=== PATIENT | female | born 1955 | race Caucasian/White ===

== ENCOUNTER 2016-06-05 16:43 | Emergency (ER) | payer OTHER ==
[~2016-06-05] VITALS: Ht 167.6 cm; Wt 65.8 kg
[~2016-06-05 16:43] MED LIST: ADVAIR 100-501 EACH INH; AMLODIPINE BESY10 M1 PO; BACLOFEN20 M1 PO; CYANOCOBAL1000 MCG/2 IM; CYCLOBENZAPRINE10 M1 PO; FLEXERIL10 MG PO; GABAPENTIN400 MG PO; HYDROCHLOROTHIA25 M1 PO; HYDRODIURIL 112.5 M1 PO; IBUPROFEN800 M1 PO; LIDODERM1 EACH TOP; MEDROL DOSEPAK1 PAC PO; MEDROL PO; MEDROL4 M1 PO; NEXIUM40 M1 PO; NORVASC 5MG TAB5 MG PO; PAROXETINE HCL20 M1 PO; PERCOCET 325 MG1 TA2 PO; PERCOCET 5-3251 EACH PO; PREDNISONE50 MG PO; PROAIR HFA8.5 GM INH; ROBAXIN 500MG500 MG; SERTRALINE HYD100 MG PO; SKELAXIN800 MG PO; TRAZODONE HCL50 M1 PO; VITAMIN D250000 UNIT PO; ZORVOLEX35 MG PO
[2016-06-05] MEDS ORDERED: PERCOCET 5-3251 EACH PO (19:22)
[2016-06-05] MEDS ORDERED: MEDROL4 M2 PO (19:22)
--- NOTE | 2016-06-05 19:22 | ED NECK/BACK PAIN COMPLAINT ---
History of Present Illness General Chief Complaint: Fall Stated Complaint: S/P FALL XS 1 WEEK AGO RTLAEG AND BACK PAIN Source: patient Exam Limitations: no limitations Vital Signs & Intake/Output Vital Signs & Intake/Output Vital Signs Date Time Temp Pulse Resp B/P Pulse O2 O2 Flow FiO2 Ox Delivery Rate 06/05 1945 Room Air Room Air 06/05 1939 98.3 78 20 146/89 95 Room Air 06/05 1646 98.3 91 20 157/90 96 Room Air ED Intake and Output 06/06 0000 06/05 1200 Intake Total 240 Output Total Balance 240 Intake, Oral 240 Patient 145 lb Weight Allergies Coded Allergies: NO KNOWN ALLERGIES (06/05/16) Reconcile Medications Albuterol Sulfate (Proair Hfa) 8.5 GM HFA.AER.AD 2 PUF INH Q4-6 PRN PRN COPD (Reported) Amlodipine Besylate 10 MG TABLET 1 TAB PO DAILY BP (Reported) Baclofen 20 MG TAB 1 TAB PO 4 TIMES/DAY MUSCLE SPASMS (Reported) Cyanocobalamin (Vitamin B-12) (Cyanocobalamin Injection) 1,000 MCG/1 ML VIAL 1 ML IM Q30D SUPPLEMENT (Reported) Cyclobenzaprine HCl 10 MG TABLET 1 TAB PO Q8P SPASMS Ergocalciferol (Vitamin D2) (Vitamin D2) 50,000 UNIT CAPSULE 1 CAP PO QMON SUPPLEMENT (Reported) Esomeprazole (Nexium) 40 MG CAP 1 CAP PO DAILY GI (Reported) Fluticasone-Salmeterol (Advair 100-50 Diskus) 1 EACH BLST.W.DEV 1 PUF INH BID COPD (Reported) Gabapentin 400 MG CAP 1 CAP PO TID NERVE PAIN (Reported) Hydrochlorothiazide 25 MG TABLET 1 TAB PO DAILY BP (Reported) Ibuprofen (Ibu) 800 MG TAB 1 TAB PO TID PAIN (Reported) Lidocaine (Lidoderm) 1 EACH ADH..PATCH 1 PAT TOP PRN PAIN (Reported) may wear up to 12 hours Methylprednisolone (Medrol) 4 MG TABLET 1 TAB PO AD BACK PAIN PACK Oxycodone HCl/Acetaminophen (Percocet 5-325 MG Tablet) 5 MG-325 MG TABLET 1-2 TAB PO Q6P PRN PAIN Paroxetine HCl 20 MG TABLET 1 TAB PO DAILY MENTAL HEALTH (Reported) TRAZODONE HCL (Trazodone HCl) 50 MG TAB 1 TAB PO QPM SLEEP (Reported) Triage Note: PT BIBA C/O RIGHT LEG AND BACK PAIN X 1.5 WEEKS. PT TAKES MOTRIN, BACLOFEN AND NEURONTIN DAILY, HAS BEEN TAKING WITH NO RELIEF. H/O SCIATICA. PT STATES PAIN IN IS COCCYX AND RADIATES DOWN BOTH LEGS, BUT SWITCHES LEGS. Triage Nurses Notes Reviewed? yes Onset: Abrupt Duration: day(s):, constant Timing: recent history Quality/Severity: moderate, severe Method of Injury: fall HPI: 61-year-old female comes into emergency room for further evaluation of coccyx pain and right sided back pain reading down her leg. Patient reports that 2 weeks ago she had fallen on her left side been experiencing pain in her right side since the fall. Denies loss of consciousness. Pain shoots down her right leg. Sharp. Continuous. Denies any numbness or tingling. Denies any other associated symptoms. (DANNI SOLANO) Past History Travel History Traveled to [place] past 21 day No Medical History Any Pertinent Medical History? 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 No (DANNI SOLANO) Review of Systems Review of Systems Constitutional: Reports: no symptoms. Eyes: Reports: no symptoms. Ears, Nose, Throat, Mouth: Reports: no symptoms. Respiratory: Reports: no symptoms. Cardiovascular: Reports: no symptoms. Gastrointestinal/Abdominal: Reports: no symptoms. Musculoskeletal: Reports: see HPI. Skin: Reports: no symptoms. Neurological/Psychological: Reports: see HPI. All Other Systems: Reviewed and Negative (DANNI SOLANO) Physical Exam Physical Exam General Appearance: well developed/nourished, mild distress Head: atraumatic Eyes: Bilateral: normal appearance. Ears, Nose, Throat, Mouth: hearing grossly normal, moist mucous membrane Neck: normal inspection Respiratory: no respiratory distress Cardiovascular: regular rate/rhythm Back: normal inspection Extremities: normal range of motion Motor: Deficit L4 Right: No Deficit L4 Left: No Deficit L5 Right: No Deficit L5 Left: No Deficit S1 Right: No Deficit S1 Right: No Neurologic/Psych: awake, alert, oriented x 3, normal mood/affect Skin: intact, normal color, warm/dry (DANNI SOLANO) Progress Differential Diagnosis: carotid dissection, cauda equina syn, herniated disc, myofascial strain, sciatica, spinal cord inj, thoracic outlet syn, T/L spine injury, ureterolithiasis Plan of Care: 06/05/2016 7:52:55 PM Patient clinically looks well. Nontoxic-appearing. In no apparent distress. Patient was offered x-rays here but she declined. I do not feel the patient has any acute fractures. Patient be treated symptomatically and follow up for outpatient x-rays with her primary care doctor. (DANNI SOLANO) Departure Departure Disposition: HOME OR SELF CARE Condition: Stable Clinical Impression Primary Impression: Injury of coccyx Secondary Impressions: Sciatica Referrals: HYUN MILLS (PCP/Family) Additional Instructions: Take Percocet and Medrol Dosepak as prescribed. Follow-up with your primary care doctor symptoms persist for outpatient x-rays. Return if any concerns worsening symptoms. Please go over all results of today's visit with your primary care doctor. Contact your primary care doctor to let them know you were here in the emergency room. There may be nonspecific findings which may not be related to your visit today here in the emergency room but may require further evaluation and chronic monitoring by your primary care doctor. If you had a laceration today the chance of foreign body always remains. You should follow-up with your primary care doctor for recheck in 3-5 days for a wound check. If you had an x-ray done there is a chance that a fracture could have been missed on initial read and you should follow-up with your primary care doctor for repeat x-rays if symptoms persist. If your blood pressure was elevated here in the emergency room please have rechecked by her primary care doctor within the next 48 hours by your primary care doctor. If you were prescribed a narcotic here in the emergency room or any type of controlled substances you're not allowed to drive while taking this medication or operate any type of heavy machinery. Narcotics can make you feel lightheaded dizziness nausea and can cause constipation. You may need to pickle cutter a stool softener. Thank you for choosing [facility] emergency room. Please return to the emergency room immediately if you have any other concerns worsening of symptoms. Departure Forms: Customer Survey General Discharge Information Prescriptions: Current Visit Scripts Oxycodone HCl/Acetaminophen (Percocet 5-325 MG Tablet) 1-2 TAB PO Q6P PRN PAIN #12 TAB (DANNI SOLANO) PA/MEDICAL CODING INSTRUCTOR Co-Sign Statement Statement: ED Attending supervision documentation- [] I saw and evaluated the patient. I have also reviewed all the pertinent lab results and diagnostic results. I agree with the findings and the plan of care as documented in the PA's/MEDICAL CODING INSTRUCTOR's documentation. [X] I have reviewed the ED Record and agree with the PA's/MEDICAL CODING INSTRUCTOR's documentation. [] Additions or exceptions (if any) to the PAs/MEDICAL CODING INSTRUCTOR's note and plan are summarized below: [] (YANET RUIZ,JONNIE Holt)
[2016-06-05 19:40] VITALS: BP 146/89
== END 2016-06-05 19:53 ==
LOC: ERH 16:43
DX: S39.82XA Other specified injuries of lower back, initial encounter (principal); M54.41 Lumbago with sciatica, right side; X58.XXXA Exposure to other specified factors, initial encounter

== ENCOUNTER 2016-06-12 14:37 | Emergency (ER) | payer OTHER ==
[~2016-06-12] VITALS: Ht 167.6 cm; Wt 65.8 kg
[~2016-06-12 14:37] MED LIST changes: +MEDROL4 M2 PO
--- NOTE | 2016-06-12 15:55 | ED MVC/FALL/TRAUMA COMPLAINT ---
History of Present Illness General Chief Complaint: Fall Stated Complaint: FALL LAST WEEK Source: patient, old records Exam Limitations: no limitations Vital Signs & Intake/Output Vital Signs & Intake/Output Vital Signs Date Time Temp Pulse Resp B/P Pulse O2 O2 Flow FiO2 Ox Delivery Rate 06/12 1717 98.2 90 16 144/80 98 Room Air Room Air 06/12 1621 Room Air 06/12 1440 98.2 103 20 152/93 96 Room Air Allergies Coded Allergies: NO KNOWN ALLERGIES (06/05/16) Reconcile Medications Albuterol Sulfate (Proair Hfa) 8.5 GM HFA.AER.AD 2 PUF INH Q4-6 PRN PRN COPD (Reported) Amlodipine Besylate 10 MG TABLET 1 TAB PO DAILY BP (Reported) Baclofen 20 MG TABLET 1 TAB PO 4 TIMES/DAY MUSCLE SPASMS (Reported) Cyanocobalamin (Vitamin B-12) (Cyanocobalamin Injection) 1,000 MCG/1 ML VIAL 1 ML IM Q30D SUPPLEMENT (Reported) Esomeprazole (Nexium) 40 MG CAPSULE.DR 1 CAP PO DAILY GI (Reported) Fluticasone/Salmeterol (Advair 250-50 Diskus) 250 MCG-50 MCG/DOSE BLST.W.DEV 1 PUF INH BID COPD (Reported) Gabapentin (Unknown Strength) CAPSULE (Unknown Dose) PO TID NERVE PAIN ( Reported) Hydrochlorothiazide 25 MG TABLET 1 TAB PO DAILY BP (Reported) Hydroxyzine HCl 25 MG TABLET 1 TAB PO BID ANXIETY (Reported) Ibuprofen 800 MG TABLET 1 TAB PO TID PAIN (Reported) Lidocaine (Lidoderm) 1 EACH ADH..PATCH 1 PAT TOP PRN PAIN (Reported) may wear up to 12 hours Oxycodone HCl/Acetaminophen (Percocet 5-325 MG Tablet) 5 MG-325 MG TABLET 1 TAB PO Q6H PRN PAIN Paroxetine HCl 30 MG TABLET 1 TAB PO DAILY MENTAL HEALTH (Reported) Tramadol HCl 50 MG TABLET 1 TAB PO PRN PAIN (Reported) Trazodone HCl 50 MG TABLET 1 TAB PO QPM SLEEP (Reported) Triage Note: PT TO ED FOR CONTINUED COCCYX PAIN. PT IS S/P FALL ON 06/05. PT WAS SEEN IN ED, SENT HOME WITH PERCOCET AND STEROIDS. PT F/U WITH [facility] ON 06/09 AND WAS ADVISED TO GET SOME X-RAYS. PT ALSO REQUESTING SOMETHING ELSE FOR PAIN. Triage Nurses Notes Reviewed? yes HPI: Patient is a 61 year old female presents complaining of coccyx pain and pain radiating down her right lower extremity. Patient fell approximately 2.5 weeks ago when she slipped and fell. Patient was seen in the emergency department approximately one week ago, placed on Percocet and a Medrol Dosepak with no improvement. Patient followed up with her primary doctor 3 days ago, was placed on tramadol and was given an order for lumbosacral and coccyx x-rays. Patient reports she has been taking the tramadol with no improvement. Pain is severe, sharp in the coccyx area, pain is burning down the right lower extremity. Pain worsens with movement and palpation. Patient denies numbness in her rectum, incontinence, abdominal pain. (HOLLY DALEY) Past History Travel History Traveled to [place] past 21 day No Medical History Any Pertinent Medical History? 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 No (HOLLY DALEY) Review of Systems Review of Systems Constitutional: Reports: no symptoms. Eyes: Reports: no symptoms. Ears, Nose, Throat, Mouth: Reports: no symptoms. Respiratory: Reports: no symptoms. Cardiovascular: Denies: chest pain, syncope. Gastrointestinal/Abdominal: Reports: no symptoms. Denies: abdominal pain. Genitourinary: Reports: no symptoms. Musculoskeletal: Reports: see HPI. Skin: Reports: no symptoms. Neurological/Psychological: Reports: paresthesia (radiating down RLE). (HOLLY DALEY) Physical Exam Physical Exam General Appearance: well developed/nourished, alert, awake Head: atraumatic, normal appearance Eyes: Bilateral: normal appearance. Ears, Nose, Throat, Mouth: hearing grossly normal, moist mucous membrane Neck: normal inspection, supple, full range of motion, no midline tenderness Respiratory: no respiratory distress Peripheral Pulses: 2+ tibialis posterior (R), 2+ tibialis posterior (L), 2+ dorsalis pedis (R), 2+ dorsalis pedis (L) Gastrointestinal: soft, non-tender Back: sacral coccyx tenderness midline. No lumbar midline or paraspinal tenderness. Positive right lower extremity straight leg raise at approximately 30 Extremities: normal range of motion bilateral lower extremities. No tenderness to the lower extremity. Neurologic/Psych: awake, alert, oriented x 3, patellar and Achilles reflexes 2+ to the right lower extremity Skin: normal color, warm/dry Core Measures ACS in differential dx? No Severe Sepsis Present: No Septic Shock Present: No (HOLLY DALEY) Progress Differential Diagnosis: stenosis, herniated disc, fracture, cauda equina. Plan of Care: Orders Procedure Date/time Status XRY-SACRUM AND COCCYX 06/12 1604 Active XRY-LUMBOSACRAL SPINE 4 VIEWS 06/12 1604 Active 06/12/2016 5:04:33 PM: Results of x-rays discussed with patient. No acute red flags on exam, patient appears stable for continued management and outpatient follow-up. (HOLLY DALEY) Diagnostic Imaging: Viewed by Me: Radiology Read. Discussed w/RAD: Radiology Read. Radiology Impression: PATIENT: CHELSEA MANNING PRESENT AGE: 61 PATIENT ACCOUNT NO: [id number] : 56 LOCATION: [facility] ORDERING PHYSICIAN: HOLLY PARKER SERVICE DATE: 06/12/16 EXAM TYPE: RAD - XRY-LUMBOSACRAL SPINE 4 VIEWS EXAMINATION: XR LUMBOSACRAL SPINE CLINICAL INFORMATION: Evaluate for fracture. COMPARISON: X-ray lumbar spine dated 01/21/2008 TECHNIQUE: AP and lateral views of the lumbosacral spine were obtained. FINDINGS: There is mild bony osteopenia Moderate levoscoliosis of the lumbar spine noted again. Interval increase in multilevel degenerative changes with osteophyte formations and decrease intervertebral disc space. Vacuum degeneration noted again at L3-L4 level. No definite evidence of acute fracture or acute subluxation. IMPRESSION: Worsening lumbar spondylosis. No acute osseous abnormality appreciated. 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 <Electronically signed in Other Vendor System> SIGNED BY: YULIYA KENNEDY MD 06/12/161654 (HOLLY DALEY) Departure Departure Time of Disposition: 1704 Disposition: HOME OR SELF CARE Condition: Stable Clinical Impression Primary Impression: Lumbar stenosis Secondary Impressions: Coccyx contusion Qualifiers: Encounter type: initial encounter Qualified Code: S30.0XXA - Contusion of lower back and pelvis, initial encounter Lumbar radiculopathy, acute Referrals: HYUN MILLS (PCP/Family) Additional Instructions: Follow up with her primary doctor this week for further evaluation, call in the morning for appointment. Return to the emergency department visit incontinence, numbness in your rectum, increasing weakness, pain uncontrollable, worsening of symptoms. Departure Forms: Customer Survey General Discharge Information Prescriptions: Current Visit Scripts Oxycodone HCl/Acetaminophen (Percocet 5-325 MG Tablet) 1 TAB PO Q6H PRN PAIN #10 TAB (HOLLY DALEY) PA/SLASHER TENDER HELPER Co-Sign Statement Statement: ED Attending supervision documentation- [] I saw and evaluated the patient. I have also reviewed all the pertinent lab results and diagnostic results. I agree with the findings and the plan of care as documented in the PA's/SLASHER TENDER HELPER's documentation. [x] I have reviewed the ED Record and agree with the PA's/SLASHER TENDER HELPER's documentation. [] Additions or exceptions (if any) to the PAs/SLASHER TENDER HELPER's note and plan are summarized below: [] (JOLIE HENRY DO)
[2016-06-12] MEDS ORDERED: GABAPENTIN400 M2 PO (16:54)
[2016-06-12] MEDS ORDERED: TRAMADOL HCL50 M1 PO (16:55)
--- NOTE | 2016-06-12 16:55 | RADIOLOGY REPORT ---
EXAMINATION: XR LUMBOSACRAL SPINE CLINICAL INFORMATION: Evaluate for fracture. COMPARISON: X-ray lumbar spine dated 01/21/2008 TECHNIQUE: AP and lateral views of the lumbosacral spine were obtained. FINDINGS: There is mild bony osteopenia Moderate levoscoliosis of the lumbar spine noted again. Interval increase in multilevel degenerative changes with osteophyte formations and decrease intervertebral disc space. Vacuum degeneration noted again at L3-L4 level. No definite evidence of acute fracture or acute subluxation. IMPRESSION: Worsening lumbar spondylosis. No acute osseous abnormality appreciated.
[2016-06-12] MEDS ORDERED: PAROXETINE HCL30 M1 PO (16:56)
[2016-06-12] MEDS ORDERED: ADVAIR 250-501 EACH INH (16:57)
[2016-06-12] MEDS ORDERED: HYDROXYZINE HCL25 M2 PO (16:57)
[2016-06-12] MEDS ORDERED: PERCOCET 5-3251 EACH PO (17:08)
[2016-06-12 17:17] VITALS: BP 144/80
== END 2016-06-12 17:17 ==
LOC: ERH 14:37
DX: S30.0XXA Contusion of lower back and pelvis, initial encounter (principal); M48.06 Spinal stenosis, lumbar region; M54.16 Radiculopathy, lumbar region; W01.0XXA Fall on same level from slipping, tripping and stumbling without subsequent striking against object, initial encounter
CPT/HCPCS: 72110; 96372; J1100

== ENCOUNTER 2016-06-18 18:29 | Observation (INO) | payer OTHER ==
[~2016-06-18] VITALS: Ht 167.6 cm; Wt 72.6 kg
[~2016-06-18 18:29] MED LIST changes: +ADVAIR 250-501 EACH INH; +GABAPENTIN400 M2 PO; +HYDROXYZINE HCL25 M2 PO; +PAROXETINE HCL30 M1 PO; +TRAMADOL HCL50 M1 PO
--- NOTE | 2016-06-18 18:34 | NUR ---
BIBA FROM HOME FOR COCCYX PAIN THAT TRAVELS TO RIGHT GLUTEUS AND DOWN RIGHT LEG, STATING ENDPOINT IS MID LATERAL CALF AREA THAT HAS BURNING PAIN. +SENSATION TO EXTREMITY. PT TEARFUL ON ARRIVAL, UNABLE TO AMBULATE AT HOME DUE TO PAIN. TOOK MOTRIN, BACLOFEN AND NEURONTIN WITH NO IMPROVEMENT AT 3PM TODAY. PT REPORTS PAIN IS DUE TO MECHANICAL FALL SUSTAINED 3 WEEKS AGO, IMAGING AND TESTING DONE HERE AT ED AT THAT TIME.
--- NOTE | 2016-06-18 19:21 | NUR ---
ELENA PRETTY IN ROOM FOR EVAL
--- NOTE | 2016-06-18 19:34 | ED NECK/BACK PAIN COMPLAINT ---
See Addendum History of Present Illness General Chief Complaint: Low Back Pain/Injury Stated Complaint: BIBA LOW BACK AND RIGHT LEG PAIN S/P FALL 3W AGO Source: patient, old records Exam Limitations: no limitations Allergies Coded Allergies: NO KNOWN ALLERGIES (06/05/16) Reconcile Medications Albuterol Sulfate (Proair Hfa) 8.5 GM HFA.AER.AD 2 PUF INH Q4-6 PRN PRN COPD (Reported) Amlodipine Besylate 10 MG TABLET 1 TAB PO DAILY BP (Reported) Baclofen 20 MG TABLET 1 TAB PO 4 TIMES/DAY MUSCLE SPASMS (Reported) Cyanocobalamin (Vitamin B-12) (Cyanocobalamin Injection) 1,000 MCG/1 ML VIAL 1 ML IM Q30D SUPPLEMENT (Reported) Esomeprazole (Nexium) 40 MG CAPSULE.DR 1 CAP PO DAILY GI (Reported) Fluticasone/Salmeterol (Advair 250-50 Diskus) 250 MCG-50 MCG/DOSE BLST.W.DEV 1 PUF INH BID COPD (Reported) Gabapentin (Unknown Strength) CAPSULE (Unknown Dose) PO TID NERVE PAIN ( Reported) Hydrochlorothiazide 25 MG TABLET 1 TAB PO DAILY BP (Reported) Hydroxyzine HCl 25 MG TABLET 1 TAB PO BID ANXIETY (Reported) Ibuprofen 800 MG TABLET 1 TAB PO TID PAIN (Reported) Oxycodone HCl/Acetaminophen (Percocet 5-325 MG Tablet) 5 MG-325 MG TABLET 1 TAB PO Q6H PRN PAIN Oxycodone HCl/Acetaminophen (Percocet 5-325 MG Tablet) 5 MG-325 MG TABLET 1 TAB PO 4 TIMES/DAY PRN pain Paroxetine HCl 30 MG TABLET 1 TAB PO DAILY MENTAL HEALTH (Reported) Tramadol HCl 50 MG TABLET 1 TAB PO PRN PAIN (Reported) Trazodone HCl 50 MG TABLET 1 TAB PO QPM SLEEP (Reported) Triage Note: BIBA FROM HOME FOR COCCYX PAIN THAT TRAVELS TO RIGHT GLUTEUS AND DOWN RIGHT LEG, STATING ENDPOINT IS MID LATERAL CALF AREA THAT HAS BURNING PAIN. +SENSATION TO EXTREMITY. PT TEARFUL ON ARRIVAL, UNABLE TO AMBULATE AT HOME DUE TO PAIN. TOOK MOTRIN, BACLOFEN AND NEURONTIN WITH NO IMPROVEMENT AT 3PM TODAY. PT REPORTS PAIN IS DUE TO MECHANICAL FALL SUSTAINED 3 WEEKS AGO, IMAGING AND TESTING DONE HERE AT ED AT THAT TIME. Triage Nurses Notes Reviewed? yes HPI: Patient is a 61 year old female presents complaining of coccyx pain and pain radiating down her right lower extremity. Patient fell approximately 3 weeks ago when she slipped and fell. Patient was seen in the emergency department approximately 2 w ago and again one week ago, placed on Percocet and a Medrol Dosepak with no improvement. Patient has followed up with her primary doctor this week after being seen here and was recommended to go to PT. Patient reports she has been taking the tramadol with no improvement. Pain is severe, sharp in the coccyx area, pain is burning down the right lower extremity. Pain worsens with movement and palpation. Patient denies numbness in her rectum, incontinence, abdominal pain. she is in too much pain to go to PT. she is having difficulty moving and getting round the house. i reviewed her xrays, she has significant arthritis and scoliosis of the spine, there is no new injury. (MARIA DE JESUS PARKER,HOLLY) Vital Signs & Intake/Output Vital Signs & Intake/Output Vital Signs Date Time Temp Pulse Resp B/P Pulse O2 O2 Flow FiO2 Ox Delivery Rate 06/19 1742 97.9 78 18 107/7 91 Room Air 06/19 1358 97.5 82 18 132/77 95 Room Air 06/19 1342 Room Air Room Air ED Intake and Output 06/20 0000 06/19 1200 Intake Total Output Total Balance Patient 160 lb Weight Onset: Abrupt Duration: week(s):, continues in ED, getting worse Timing: remote history Location: lumbar spine Radiation: none Context: trauma Method of Injury: fall Loss of Consciousness: no loss of consciousness Modifying Factors: movement Associated Symptoms: lower back pain (BONNIE RUIZ,ISI Joyce) Past History Travel History Traveled to [place] past 21 day No Medical History Any Pertinent Medical History? 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 No (HOLLY SPRING) Review of Systems Review of Systems Constitutional: Reports: see HPI. Eyes: Reports: no symptoms. Ears, Nose, Throat, Mouth: Reports: no symptoms. Respiratory: Reports: no symptoms. Cardiovascular: Reports: no symptoms. Gastrointestinal/Abdominal: Reports: no symptoms. Musculoskeletal: Reports: see HPI. Skin: Reports: no symptoms. Neurological/Psychological: Reports: no symptoms. All Other Systems: Reviewed and Negative (HOLLY SPRING) Physical Exam Physical Exam Neck: normal inspection, supple, full range of motion, normal alignment Comments: Well-developed well-nourished no apparent distress. HEENT: Atraumatic, extraocular motion intact Neck: Supple, no lymphadenopathy Back: Tenderness to the paravertebral musculature on the R side lower lumbar and coccyx region with mild spasming noted. No midline tenderness. No deformity or signs of trauma. There is no rashes present. Range of motion is limited secondary to pain Straight leg raise is positive on the right Bilateral lower extremities are neurovascularly intact with sensation and motor grossly intact. Gait cannot be tested Respiratory: No respiratory distress Abdomen: Soft nontender nondistended Extremities: No edema, full range of motion Neuro: Alert and oriented x3 Psych: Mood affect normal, normal memory normal judgment. Skin: Warm and dry, no rash on exposed skin (HOLLY SPRING) Progress Differential Diagnosis: AAA, aortic dissection, C spine injury, carotid dissection, cauda equina syn, herniated disc, myofascial strain, pyelo/UTI, sciatica, spinal cord inj, thoracic outlet syn, T/L spine injury, ureterolithiasis Plan of Care: Orders Procedure Date/time Status Regular Diet 06/19 B Active PT Evaluate & Treat 06/19 355 Active CASE MANAGEMENT CONSULT 06/19 355 Active Saline Lock 06/[address] in observation 06/18 2203 Active Misc Message 06/18 2203 Active ED Holding Orders 06/18 2203 Active Patient Data 06/18 2203 Active Vital Signs 06/18 2203 Active Code Status 06/18 2203 Active Intake & Output 06/18 1848 Active Diagnostic Imaging: Viewed by Me: Radiology Read. Discussed w/RAD: Radiology Read. Radiology Impression: PATIENT: CHELSEA MANNING PRESENT AGE: 61 PATIENT ACCOUNT NO: [id number] : 56 LOCATION: [facility] ORDERING PHYSICIAN: HOLLY PARKER SERVICE DATE: 06/18/16 EXAM TYPE : RAD - XRY-HIP 2-3 VIEWS, RIGHT EXAMINATION: XR HIP, RIGHT CLINICAL INFORMATION : Right groin pain. COMPARISON: CT abdomen and pelvis dated 12/27/2007. TECHNIQUE: Frontal and frog lateral of the right hip. FINDINGS: Bony alignment is normal. There is mild generalized bony demineralization. There is mild narrowing of the superior portion of the right acetabular joint space, with mild sclerosis of the right acetabular roof. No acute fracture or dislocation is seen. The right femoral head appears smooth. The soft tissue planes are unremarkable, without foreign body. IMPRESSION: 1. There are mild osteoarthritic changes of the right hip. 2. No acute fracture or dislocation is seen. 3. There is generalized bony demineralization. DICTATED BY: CHUCKY HATCH MD DATE/TIME DICTATED:06/18/162111 Hand-Off Endorsed To: ISI MELCHOR MD Endorsed Time: 0025 Pending: other (RE EVAL IN AM, PAIN CONTROL ) Comments: Patient given 30 mg of Toradol IM and 2 Percocet. She was reevaluated and pain has mildly improved, she attempted to stand and was unable to due to severe pain in her coccyx and low back region and right hip and groin region. We will give her a milligram of Dilaudid and obtain right hip x- ray. Right hip x-ray is unremarkable except for mild arthritis no traumatic injury or fracture noted. Patient was reevaluated, still with severe pain, she cannot stand and walk within a few feet. Due to her symptoms, she is unsafe discharge home and will be kept in the emergency department as an ED observation. She will be discharged in the morning, hopefully her pain is better controlled at that time. She will follow up with a paint sprayer sandblaster (MARIA DE JESUS PARKER,HOLLY) Diagnostic Imaging: Viewed by Me: CT Scan. Discussed w/RAD: CT Scan. Radiology Impression: right hip ct scan... pubic rami and ala fx as noted below. , lumbar sacral ct... transverse process L5 fx, right ilium fx as noted below Hand-Off Endorsed To: JOLIE SCHULTZ MD Endorsed Time: 0700 Pending: other Comments: PATIENT: CHELSEA MANNING PRESENT AGE: 61 PATIENT ACCOUNT NO: [id number] : 56 LOCATION: [facility] ORDERING PHYSICIAN: ISI MELCHOR MD SERVICE DATE: 06/19/16 EXAM TYPE: CAT - CT LUMB SPINE WO IV CONTRAST CT LUMBAR SPINE WITHOUT CONTRAST CLINICAL INFORMATION: Pain in the right hip, pelvis and back 3 weeks after fall. COMPARISON: Lumbar spine radiographs from the 2016. Lumbar spine MRI May 27, 2005. TECHNIQUE: Helical non-contrast CT images were obtained through the lumbar spine and 1.25 and 2.5 mm axial reconstructions were reviewed along with sagittal and coronal MPRs. FINDINGS: There is a nondisplaced fracture involving the right L5 transverse process. No additional fractures are identified within the lumbar spine. There are partially imaged fractures involving the right sacral amelia and the left ilium anteriorly. The fracture involving the left ilium anteriorly is felt to be subacute with some bone formation appreciated along the margins of the fracture. There is a severe leftward convex scoliotic curvature of the lumbar spine. Lumbar vertebral body heights are overall maintained. There is severe disc volume loss at all lumbar levels. There is vacuum phenomenon at L1-L2 and L3-L4. Advanced multilevel facet arthropathy. 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 There are laminectomy changes at L4. No high-grade bony foraminal stenosis is appreciated. There are disc bulges at the majority of lumbar levels and at L3-L4 multifactorial degenerative changes are suspected to result in moderate central canal stenosis. IMPRESSION: - There is a nondisplaced fracture involving the right L5 transverse process and there are partially imaged fractures involving the right sacral amelia and the left ilium anteriorly. The fracture involving the left ilium anteriorly is felt to be subacute with some bone formation appreciated along the margins of the fracture. - Severe leftward convex scoliotic curvature of the lumbar spine superimposed on advanced multilevel degenerative disc disease and facet arthropathy. 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 Appearance is similar in comparison to a lumbar spine MRI from May 27, 2005. DICTATED BY: JOLIE BULL MD DATE/TIME DICTATED:06/19/16509 HOME MANAGER:TRICIA DATE/TIME TRANSCRIBED:06/19/16509 CONFIDENTIAL, DO NOT COPY WITHOUT APPROPRIATE AUTHORIZATION. <Electronically signed in Other Vendor System> SIGNED BY: JOLIE BULL MD 06/19/16526 PATIENT: CHELSEA MANNING PRESENT AGE: 61 PATIENT ACCOUNT NO: [id number] : 56 LOCATION: [facility] ORDERING PHYSICIAN: ISI MELCHOR MD SERVICE DATE: 06/19/16 EXAM TYPE: CAT - CT LOWER EXT WO IV CONTRAST EXAMINATION: CT LOWER EXTREMITY WITHOUT CONTRAST, RIGHT CLINICAL INFORMATION: Pain in the right hip and pelvis 3 weeks after fall COMPARISON: Lumbar spine CT performed the same day and right hip radiographs June 18, 2016. TECHNIQUE: Multidetector CT acquisition of the right hip is obtained. Multiplanar reformats were acquired and utilized for image interpretation. FINDINGS: There is a partially imaged fracture likely involving the junction of the right superior pubic ramus and the right pubic symphysis on axial image 46 of series 7. Redemonstration of the right sacral amelia fracture as discussed on the corresponding lumbar spine CT. Transverse fracture involving the right L5 transverse process and a fracture involving the anterior aspect of the left ilium are demonstrated on the corresponding lumbar spine CT and not included on this exam. The right hip is intact. Imaged proximal right femur is normal. The right femoral acetabular joint is normal. The right ilium is intact. No significant soft tissue findings. IMPRESSION: - There is a partially imaged fracture likely involving the junction of the right superior pubic ramus and the right pubic symphysis on axial image 46 of series 7. Redemonstration of the right sacral amelia fracture as discussed on the corresponding lumbar spine CT. Transverse fracture involving the right L5 transverse process and a fracture involving the anterior aspect of the left ilium are demonstrated on the corresponding lumbar spine CT and not included on this exam. - The right hip is intact. DICTATED BY: JOLIE BULL MD DATE/TIME DICTATED:06/19/16535 HOME MANAGER:TRICIA DATE/TIME TRANSCRIBED:06/19/16 36 CONFIDENTIAL, DO NOT COPY WITHOUT APPROPRIATE AUTHORIZATION. <Electronically signed in Other Vendor System> SIGNED BY: JOLIE BULL MD 06/19/16 0552 (BONNIE RUIZ,ISI Joyce) Comments: 06/19/2016 6:49:52 PM patient signed out to me by Dr. Melchor at shift slip box changer. The patient will be transferred to an extended care facility/ rehabilitation program. (MARGO RUIZ,JOLIE Rousseau) Departure Departure Condition: Stable Referrals: HYUN MILLS (PCP/Family) Additional Instructions: Please follow up with primary care doctor or paint sprayer sandblaster for further evaluation and treatment of your low back pain Departure Forms: Customer Survey General Discharge Information Observation Note Spoke With: ISI MELCHOR MD Physician Advisor Notified: YANET RUIZ,JONNIE [facility] Patient In: ED Observation Rationale for Observation: My rational for observation is as follows . Severe intractable low back pain not relieved with IV pain medication. Unable to ambulate, failed outpatient treatment as she has been seen here 3 times in the last 2 weeks and by her primary care doctor twice. (HOLLY SPRING) Departure Prescriptions: Current Visit Scripts Oxycodone HCl/Acetaminophen (Percocet 5-325 MG Tablet) 1 TAB PO Q6H PRN PAIN #10 TAB Oxycodone HCl/Acetaminophen (Percocet 5-325 MG Tablet) 1 TAB PO 4 TIMES/DAY PRN pain #12 TAB Comments 06/19/16, 6:27Am....fractures noted in pelvis, discussed with dr. navarro... non operative management is proper ... PT/case management eval this AM. Pt signed out to Dr. Schultz. (ISI MELCHOR MD) Departure Disposition: ACUTE REHAB FACILITY Clinical Impression Primary Impression: Intractable low back pain Secondary Impressions: Pelvic fracture Qualifiers: Encounter type: initial encounter Pelvic bone location: ischium Fracture type: closed Fracture morphology: unspecified fracture morphology Fracture alignment: nondisplaced Laterality: unspecified laterality Qualified Code: S32.609A - Unspecified fracture of unspecified ischium, initial encounter for closed fracture Pubic ramus fracture Qualifiers: Encounter type: initial encounter Fracture type: closed Laterality: unspecified laterality Qualified Code: S32.599A - Other specified fracture of unspecified pubis, initial encounter for closed fracture (MARGO RUIZ,JOLIE Rousseau) ED Attending Observation Initial Observation Note: I have seen and personally examined CHELSEA MANNING on 06/19/16 at 0630. I agree with the current emergency department documentation. The disposition (admission or discharge) is uncertain at this time, she needs a period of observation for the following reason(s): pelvic fractures as noted... pt sleeping comfortably after oral pain medications. The ED Nurse caring for this patient has been personally informed as to what the patient is being observed for. Observation Re-Evaluation: I have reevaluated CHELSEA MANNING on 06/19/16 at 0357. The physical findings that support the continued need to observe this patient include .PT WITH PERSISTENT PAIN.... PT ASKING FOR PERCOCET AND STATES SHE CAN'T CARE FOR HERSELF.... WILL ORDER CT SCAN TO FURTHER EVALUATE GIVEN THE PAIN AND PERSISTENT DIFFICULTY WITH AMBULATING... PT AND CASE MANAGEMENT TO EVALUATE FOR POTENTIAL IN PATIENT REHAB. (BONNIE RUIZ,ISI Joyce) The ED Nurse caring for this patient has been personally informed as to what the patient is being observed for. Observation Re-Evaluation: I have reevaluated CHELSEA MANNING on 06/19/16 at 0357. The physical findings that support the continued need to observe this patient include .PT WITH PERSISTENT PAIN.... PT ASKING FOR PERCOCET AND STATES SHE CAN'T CARE FOR HERSELF.... WILL ORDER CT SCAN TO FURTHER EVALUATE GIVEN THE PAIN AND PERSISTENT DIFFICULTY WITH AMBULATING... PT AND CASE MANAGEMENT TO EVALUATE FOR POTENTIAL IN PATIENT REHAB. (BONNIE RUIZ,ISI Joyce)
--- NOTE | 2016-06-18 19:47 | NUR ---
MEDICATED WITH TORADOL AND PERCOCET PER eMAR. LIGHTS DIMMED AND WATER PROVIDED PER REQUEST. TV ON PER REQUEST
--- NOTE | 2016-06-18 20:50 | NUR ---
IV ESTABLISHED AND MEDICATED PER eMAR. TO XRAY VIA STRETCHER. SLIGHT IMPROVEMENT IN MOBILITY OBSERVED
--- NOTE | 2016-06-18 21:17 | RADIOLOGY REPORT ---
EXAMINATION: XR HIP, RIGHT CLINICAL INFORMATION: Right groin pain. COMPARISON: CT abdomen and pelvis dated 12/27/2007. TECHNIQUE: Frontal and frog lateral of the right hip. FINDINGS: Bony alignment is normal. There is mild generalized bony demineralization. There is mild narrowing of the superior portion of the right acetabular joint space, with mild sclerosis of the right acetabular roof. No acute fracture or dislocation is seen. The right femoral head appears smooth. The soft tissue planes are unremarkable, without foreign body. IMPRESSION: 1. There are mild osteoarthritic changes of the right hip. 2. No acute fracture or dislocation is seen. 3. There is generalized bony demineralization.
--- NOTE | 2016-06-18 21:27 | NUR ---
PT GOT UP AN DOWN OFF OF BEDSIDE COMMODE TO VOID. PT DID THIS INDEPENDENTLY. VITALS TAKEN, HOLLY Dumont PA IN TO SEE PT AND DISCUSS PAIN CONTROL. PT STATES PAIN IS A 6 OUT OF 10 AT REST
--- NOTE | 2016-06-18 21:45 | NUR ---
PT TO BE ADMITTED FOR OBSERVATION. PT GIVEN BOX DINNER.
[2016-06-18] MEDS ORDERED: PERCOCET 5-3251 EACH PO (22:24)
--- NOTE | 2016-06-18 22:43 | NUR ---
REPORT RECIEVED FROM GAYLA TRAN, PT CARE ASSUMED AT THIS TIME. LIGHTS DIMMED, PT PROVIDED PILLOW FOR COMFORT, WILL CONTINUE TO MONITOR.
--- NOTE | 2016-06-19 00:47 | NUR ---
PT SLEEPING IN HOSPITAL BED AT THIS TIME, LIGHTS REMAINED OFF, REGULAR RESPIRATIONS NOTED, NO ACUTE DISTRESS, WILL CONTINUE TO MONITOR.
--- NOTE | 2016-06-19 02:16 | NUR ---
PT SLEEPING AT THIS TIME, REMAINS IN HOSPITAL BED, PT OFFERING NO COMPLAINTS AT THIS TIME, REGULAR RESPIRATIONS NOTED. NAD. WILL CONTINUE TO MONITOR.
[2016-06-19] MEDS ORDERED: PERCOCET 5-3251 EACH PO (02:49)
--- NOTE | 2016-06-19 03:47 | NUR ---
CARLENE FROM CAT SCAN ATTEMPTED TO PLACE PT IN WHEELCHAIR FOR SCAN. PT STATED SHE WAS IN TOO MUCH PAIN FOR TRANSFER. PT PLACED BACK IN HOSPITAL BED, REPOSITIONED FOR COMFORT. MADE AWARE
--- NOTE | 2016-06-19 03:55 | NUR ---
PT TO CAT SCAN
--- NOTE | 2016-06-19 04:04 | NUR ---
PT MEDICATED PER EMAR WITH 2 TABS PERCOCET.
--- NOTE | 2016-06-19 05:27 | CT SCAN REPORT ---
CT LUMBAR SPINE WITHOUT CONTRAST CLINICAL INFORMATION: Pain in the right hip, pelvis and back 3 weeks after fall. COMPARISON: Lumbar spine radiographs from the 2016. Lumbar spine MRI May 27, 2005. TECHNIQUE: Helical non-contrast CT images were obtained through the lumbar spine and 1.25 and 2.5 mm axial reconstructions were reviewed along with sagittal and coronal MPRs. FINDINGS: There is a nondisplaced fracture involving the right L5 transverse process. No additional fractures are identified within the lumbar spine. There are partially imaged fractures involving the right sacral amelia and the left ilium anteriorly. The fracture involving the left ilium anteriorly is felt to be subacute with some bone formation appreciated along the margins of the fracture. There is a severe leftward convex scoliotic curvature of the lumbar spine. Lumbar vertebral body heights are overall maintained. There is severe disc volume loss at all lumbar levels. There is vacuum phenomenon at L1-L2 and L3-L4. Advanced multilevel facet arthropathy. 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 There are laminectomy changes at L4. No high-grade bony foraminal stenosis is appreciated. There are disc bulges at the majority of lumbar levels and at L3-L4 multifactorial degenerative changes are suspected to result in moderate central canal stenosis. IMPRESSION: - There is a nondisplaced fracture involving the right L5 transverse process and there are partially imaged fractures involving the right sacral amelia and the left ilium anteriorly. The fracture involving the left ilium anteriorly is felt to be subacute with some bone formation appreciated along the margins of the fracture. - Severe leftward convex scoliotic curvature of the lumbar spine superimposed on advanced multilevel degenerative disc disease and facet arthropathy. 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 Appearance is similar in comparison to a lumbar spine MRI from May 27, 2005.
--- NOTE | 2016-06-19 05:35 | NUR ---
PT SLEEPING AT THIS TIME, OFFERING NO COMPLAINTS. BILATERAL CHEST RISE AND FALL NOTED. NAD. WILL CONTINUE TO MONITOR.
--- NOTE | 2016-06-19 05:52 | CT SCAN REPORT ---
EXAMINATION: CT LOWER EXTREMITY WITHOUT CONTRAST, RIGHT CLINICAL INFORMATION: Pain in the right hip and pelvis 3 weeks after fall COMPARISON: Lumbar spine CT performed the same day and right hip radiographs June 18, 2016. TECHNIQUE: Multidetector CT acquisition of the right hip is obtained. Multiplanar reformats were acquired and utilized for image interpretation. FINDINGS: There is a partially imaged fracture likely involving the junction of the right superior pubic ramus and the right pubic symphysis on axial image 46 of series 7. Redemonstration of the right sacral amelia fracture as discussed on the corresponding lumbar spine CT. Transverse fracture involving the right L5 transverse process and a fracture involving the anterior aspect of the left ilium are demonstrated on the corresponding lumbar spine CT and not included on this exam. The right hip is intact. Imaged proximal right femur is normal. The right femoral acetabular joint is normal. The right ilium is intact. No significant soft tissue findings. IMPRESSION: - There is a partially imaged fracture likely involving the junction of the right superior pubic ramus and the right pubic symphysis on axial image 46 of series 7. Redemonstration of the right sacral amelia fracture as discussed on the corresponding lumbar spine CT. Transverse fracture involving the right L5 transverse process and a fracture involving the anterior aspect of the left ilium are demonstrated on the corresponding lumbar spine CT and not included on this exam. - The right hip is intact.
--- NOTE | 2016-06-19 07:30 | NUR ---
ASSUMED CARE OF THIS PATIENT PT ASSISTED OOB TO BSC AT THIS TIME. RATES PAIN 11/30.
--- NOTE | 2016-06-19 07:51 | NUR ---
PT MEDICATED WITH PRN PERCOCET PER [facility]DERS FOR PAIN LEVEL 8/10. GAVE LIST OF AM MEDS TO DR ARAGON FOR ORDERING.
--- NOTE | 2016-06-19 08:55 | NUR ---
PT MEDICATED WITH AM MEDS PER ORDERS DR ARAGON, SEE eMAR FOR DETAILS. WILL CONTINUE TO MONITOR
--- NOTE | 2016-06-19 09:17 | NUR ---
PHYSICAL THERAPY HERE FOR EVAL HERE FOR EVAL
--- NOTE | 2016-06-19 10:29 | NUR ---
DION FROM CASE MANAGEMENT INTO SPEAK WITH PATIENT
--- NOTE | 2016-06-19 10:37 | NUR ---
CASE MANAGEMENT-REFERRAL RECEIVED FROM DR. ARAGON THAT THE PATIENT WILL LIKELY NEED STR PENDING A PT EVALUATION. PT EVALUATED THE PATIENT AND DO RECOMMEND STR. MET WITH THE PATIENT INTRODUCED SELF AND THE ROLE OF THIS DEPARTMENT. PER THE PATIENT SHE LIVES IN HER OWN APARTMENT WITH STEPS TO GET INSIDE. SHE HAS HAD INCREASING DIFFICULTY AMBULATING AND AGRESS TO REHAB. REVIEWED FACILITY RESOURCE LIST. PT HAS NO PREFERENCES AND AGREES WITH REFERRAL TO OUR PREFERRED PARTNERS. ASKED PATIENT IF I COULD CONTACT HER SON AND SHE STATES SHE WILL FILL HIM HIM. WILL PROCEED AND KEEP ALL INFORMED.
--- NOTE | 2016-06-19 11:21 | NUR ---
assumed care of pt, PT RESTING COMFORTABLY AT THIS TIME, CURRENTLY DENIES ANY NEEDS. AWAITING BED ASSIGNMENT FROM CASE MANAGEMENT
--- NOTE | 2016-06-19 11:42 | NUR ---
PT EATING LUNCH WITH NO DIFFICULTY, FRIENDS/FAMILY AT BEDSIDE. MEDICATED WITH PERCOCET PER EMAR.
--- NOTE | 2016-06-19 12:48 | NUR ---
PT STATING PERCOCET HAS IMPROVED PAIN, ASSISTED TO COMMODE WITH MINIMAL ASSISTANCE, NOW RESQUESTING TO REST IN A DARKENED ROOM
--- NOTE | 2016-06-19 13:46 | NUR ---
[facility] CALLED FOR GABAPENTIN 400MG, STATES IT WILL BE READY TO BE PICKED UP IN A FEW MINUTES.
--- NOTE | 2016-06-19 14:33 | NUR ---
PT ASSISTED TO AND FROM THE [facility] COMMODE, MEDICATED PER EMAR, DENIES ANY ADDTL NEEDS AT THIS TIME
--- NOTE | 2016-06-19 16:04 | NUR ---
Case Mgmnt TSF: Attestation has been faxed to [facility]. Fax confirmation received. I will call and make sure that they have received it. CM continuing to follow.
--- NOTE | 2016-06-19 16:15 | NUR ---
PT MEDICATED WITH 1600 10MG BACLOFEN PER EMAR.
--- NOTE | 2016-06-19 16:18 | NUR ---
PT MEDICATED WITH 1 TAB PERCOCET PER EMAR FOR PAIN 11/30.
--- NOTE | 2016-06-19 16:50 | NUR ---
Case Mgmnt TSF: Multiple calls back and forth between Yassine (for [facility]) and myself. She spoke to [facility] and they are offering a bed. I am still pending call back to make sure it is ok to send the patient tonight. [facility] has been approved. Patient has verbally accepted bed to me for [facility]. I will work on getting all paperwork together for envelope and update nursing. CM continuing to follow.
--- NOTE | 2016-06-19 16:56 | NUR ---
Case Mgmnt TSF: I called and spoke with [facility]. They will take patient tonight. She asked that I touch base with Dayanara in admissions at [facility]. I called and spoke with Dayanara at [facility] and they will take the patient. They would like to take her a little later. We will schedule corn picker for 1830pm to give them enough time. I let them know that envelope will have all the clinical that they are looking for. I will update nursing and will continue to monitor.
--- NOTE | 2016-06-19 17:10 | NUR ---
PT AMBULATED TO THE BEDSIDE COMMODE WITH THIS RNS ASSISTANCE.
[2016-06-19 17:42] VITALS: BP 107/7
--- NOTE | 2016-06-19 17:50 | NUR ---
Case Mgmnt TSF: Envelope put together and given to RN Suhail. She will complete her portion of the paperwork. Suhail RN will call report to facility and community arts officer Keenen will be calling to set up for transport to facility. Patient going to [facility]. Patient has notified her son as to where she is going. CM portion completed at present.
--- NOTE | 2016-06-19 17:54 | NUR ---
[facility]QUAN BOOKED FOR TRANSPORT AT 1830 TO [facility]
--- NOTE | 2016-06-19 17:59 | NUR ---
THIS RN ATTEMPTED TO CALL [facility], THEY DID NOT ANSWER.
--- NOTE | 2016-06-19 18:24 | NUR ---
THIS RN HAS ATTEMPED TO CALL [facility] TWICE WITH NO ANSWER.
--- NOTE | 2016-06-19 18:33 | NUR ---
THIS RN AND CALLED TO GIVE REPORT TO GAYLA THOMAS AT [facility] AND GAYLA THOMAS CUT THIS RN OFF AFTER THIS RN READ THE PTS NAME, AGE, TRIAGE NOTE, AND LAST SET OF VITALS, GAYLA THOMAS DID NOT LET THIS RN FINISH IN STATING THE MEDICATIONS ADMINISTERED TODAY, THE IV SITE THAT THIS RN WILL D/C, THE MED SURG HX, OR THE TESTS COMPLETED HERE AT ED.
--- NOTE | 2016-06-19 19:04 | NUR ---
[facility] HERE FOR PICKUP
--- NOTE | 2016-07-20 17:49 | OP PSYCH DISCHARGE ---
OUTPATIENT PSYCH DISCHARGE FIRST APPOINTMENT DATE: 01/17/13 LAST CONTACT DATE: 09/16/12 FOCUS OF TREATMENT- SYMPTOMS/ISSUES: Polysubstance use disorder MDD, Recurrent,Severe, w/o psychotic features TOTAL NUMBER OF SESSIONS: INTAKE ONLY TYPE OF TREATMENT: MEDICATION STATUS OF LAST CONTACT: FOCUS OF TREATMENT WAS: WORSENING CONDITION REASON FOR DISCHARGE: referred to [facility] DSM5/PS Stressors/Medical Prob Diagnosis' (DSM 5, Stressors, Medical): Opioid Use Disorder Sedative/hypnotic use disorder MDD, Recurrent, severe Current GAF: 45% Medication List Current Psychiatric Med(s): Paxil 70 mg po daily Neurontin 800 mg po 4 times a day Seroquel 25 mg 4 times a day Baclofen 20 mg 4 times a day
== END 2016-06-19 19:17 ==
LOC: ERH 18:29 → ERHI 22:04
PROVIDERS: ADMIT Pediatrics
DX: S32.302A Unspecified fracture of left ilium, initial encounter for closed fracture (principal); S32.059A Unspecified fracture of fifth lumbar vertebra, initial encounter for closed fracture; F41.9 Anxiety disorder, unspecified; F32.9 Major depressive disorder, single episode, unspecified; I10 Essential (primary) hypertension; J44.9 Chronic obstructive pulmonary disease, unspecified; M41.9 Scoliosis, unspecified; M19.90 Unspecified osteoarthritis, unspecified site; W01.0XXA Fall on same level from slipping, tripping and stumbling without subsequent striking against object, initial encounter
CPT/HCPCS: 6090; 73502-RT; 96372; 96374; 96375; G0378; J1885; J3490

== ENCOUNTER 2016-08-21 21:09 | Emergency (ER) | payer OTHER ==
[~2016-08-21] VITALS: Ht 167.6 cm; Wt 63.5 kg
--- NOTE | 2016-08-22 02:28 | ED GENERAL ADULT ---
History of Present Illness General Chief Complaint: General Adult Stated Complaint: BIBA L SIDE NECK PAIN Source: patient Exam Limitations: no limitations Vital Signs & Intake/Output Vital Signs & Intake/Output Vital Signs Date Time Temp Pulse Resp B/P B/P Pulse O2 O2 Flow FiO2 Mean Ox Delivery Rate 08/22 0136 98 Room Air 08/22 013 97.3 98 20 145/86 95 Room Air 08/21 2135 98.7 111 20 147/95 95 Room Air ED Intake and Output 08/22 0000 08/21 1200 Intake Total Output Total Balance Patient 140 lb Weight Allergies Coded Allergies: NO KNOWN ALLERGIES (06/05/16) Reconcile Medications Albuterol Sulfate (Proair Hfa) 8.5 GM HFA.AER.AD 2 PUF INH Q4-6 PRN PRN COPD (Reported) Amlodipine Besylate 10 MG TABLET 1 TAB PO DAILY BP (Reported) Baclofen 20 MG TABLET 1 TAB PO 4 TIMES/DAY MUSCLE SPASMS (Reported) Cyanocobalamin (Vitamin B-12) (Cyanocobalamin Injection) 1,000 MCG/1 ML VIAL 1 ML IM Q30D SUPPLEMENT (Reported) Cyclobenzaprine HCl 10 MG TABLET 1 TAB PO TID PRN muscle spasm Esomeprazole (Nexium) 40 MG CAPSULE.DR 1 CAP PO DAILY GI (Reported) Fluticasone/Salmeterol (Advair 250-50 Diskus) 250 MCG-50 MCG/DOSE BLST.W.DEV 1 PUF INH BID COPD (Reported) Gabapentin (Unknown Strength) CAPSULE (Unknown Dose) PO TID NERVE PAIN ( Reported) Hydrochlorothiazide 25 MG TABLET 1 TAB PO DAILY BP (Reported) Hydroxyzine HCl 25 MG TABLET 1 TAB PO BID ANXIETY (Reported) Ibuprofen 800 MG TABLET 1 TAB PO TID PAIN (Reported) Oxycodone HCl/Acetaminophen (Percocet 5-325 MG Tablet) 5 MG-325 MG TABLET 1 TAB PO 4XDP PRN PAIN six...[id number] Oxycodone HCl/Acetaminophen (Percocet 5-325 MG Tablet) 5 MG-325 MG TABLET 1 TAB PO Q6H PRN PAIN Oxycodone HCl/Acetaminophen (Percocet 5-325 MG Tablet) 5 MG-325 MG TABLET 1 TAB PO 4 TIMES/DAY PRN pain Paroxetine HCl 30 MG TABLET 1 TAB PO DAILY MENTAL HEALTH (Reported) Tramadol HCl 50 MG TABLET 1 TAB PO PRN PAIN (Reported) Trazodone HCl 50 MG TABLET 1 TAB PO QPM SLEEP (Reported) Triage Note: PT BIBA FROM HOME C/O LEFT SIDE NECK PAIN, LEFT MED BACK PAIN, PAIN IN COCCYX, BURNING PAIN DOWN LEFT LEG. C/O WEAKNESS IN RT LEG. HAS MRI SCHEDULED FOR SUNDAY, STATES "I CAN'T GET THERE , I JUST GOT TOO MUCH GOING ON" PMH OF SCIATIC AND PINCHED NERVES. DENIES URINARY INCONTINANCE Triage Nurses Notes Reviewed? yes Onset: Gradual Duration: week(s):, waxing and waning Timing: recent history Injury Environment: home Severity: moderate Modifying Factors: Improves With: medication. Worsens With: movement. Associated Symptoms: muscle spasm HPI: 61-year-old woman history of chronic pain, back pain, arthritis presents with worsening left upper back pain and lower lumbar pain for the past several weeks. She is awaiting an appointment with pain management. She has an appointment for an MRI on Sunday. She states that no medication has been able to help her. She has no radiation down her legs. She is able able it without problem. She has no dysuria, fever, chills, chest pain, dyspnea. Past History Travel History Traveled to [place] past 21 day No Medical History Any Pertinent Medical History? 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 No Review of Systems Review of Systems Constitutional: Reports: no symptoms. EENTM: Reports: no symptoms. Respiratory: Reports: no symptoms. Cardiovascular: Reports: no symptoms. GI: Reports: no symptoms. Genitourinary: Reports: no symptoms. Musculoskeletal: Reports: no symptoms. Skin: Reports: no symptoms. Neurological/Psychological: Reports: no symptoms. Hematologic/Endocrine: Reports: no symptoms. Immunologic/Allergic: Reports: no symptoms. All Other Systems: Reviewed and Negative Physical Exam Physical Exam General Appearance: well developed/nourished, mild distress, moderate distress Head: atraumatic, normal appearance Eyes: Bilateral: normal appearance, PERRL, EOMI. Ears, Nose, Throat: normal pharynx, normal ENT inspection Neck: normal inspection, supple, no midline tenderness, left trapezius muscle spasm to palpation Respiratory: normal breath sounds, chest non-tender, no respiratory distress, quiet respiration, lungs clear Cardiovascular: regular rate/rhythm Gastrointestinal: normal bowel sounds, soft, non-tender, no organomegaly Back: normal inspection Extremities: normal inspection, normal capillary refill, normal range of motion, no edema Neurologic/Psych: no motor/sensory deficits, awake, alert Skin: intact, normal color, warm/dry Core Measures ACS in differential dx? No CVA/TIA Diagnosis: No Severe Sepsis Present: No Septic Shock Present: No Progress Differential Diagnoses I considered the following diagnoses in my evaluation of the patient: Muscle spasm versus chronic pain versus DJD versus other Plan of Care: Current Medications Sig/Blayne Start time Last Medication Dose Stop Time Status Admin Cyclobenzaprine HCl 10 MG ONCE ONE 08/22 244 UNVr 08/22 (Flexeril 10MG Tab) 08/22 245 024 Hydromorphone HCl 1 MG ONCE ONE 08/22 244 UNVr 08/22 (Dilaudid) 08/22 245 0241 Ketorolac 60 MG ONCE ONE 08/22 244 UNVr 08/22 Tromethamine 08/22 245 0241 (Toradol) Initial ED EKG: none Departure Departure Disposition: HOME OR SELF CARE Condition: Stable Clinical Impression Primary Impression: Chronic pain Secondary Impressions: Muscle spasm Referrals: [facility] (PCP/Family) Departure Forms: Customer Survey General Discharge Information Prescriptions: Current Visit Scripts Oxycodone HCl/Acetaminophen (Percocet 5-325 MG Tablet) 1 TAB PO 4XDP PRN PAIN #6 TAB six...[id number] Cyclobenzaprine HCl 1 TAB PO TID PRN muscle spasm #30 TAB Comments 08/22/16, 3:27am.... pt feeling better... discussed at length... pt safe for discharge with close follow up by pmd. Critical Care Note Critical Care Note Critical Care Time: non-applicable
[2016-08-22] MEDS ORDERED: PERCOCET 5-3251 EACH PO (03:21)
[2016-08-22] MEDS ORDERED: CYCLOBENZAPRINE10 M1 PO (03:21)
[2016-08-22 03:29] VITALS: BP 144/83
== END 2016-08-22 03:36 ==
LOC: ERH 21:09
DX: G89.29 Other chronic pain (principal); M62.838 Other muscle spasm
CPT/HCPCS: J1885